=== PATIENT | female | born 1950 | race Caucasian/White ===

== ENCOUNTER 2022-10-06 11:25 | Outpatient (CLI) | payer OTHER, SELFPAY ==
[2022-10-06 21:25] LABS: Albumin* 4.5 g/dL (3.3-5.0); Chloride* 105 mmol/L (96-114); Potassium* 4.3 mmol/L (3.6-5.1); Sodium* 136 mmol/L (135-149)
[2022-10-06 21:27] LABS: Carbon Dioxide* 29 mmol/L (20-32); Cholesterol* 168 mg/dL (90-199); Creatinine* 0.8 mg/dL (0.5-1.5); Estimated Glomerular Filt Rate 79 ml/min
[2022-10-06 21:28] LABS: Alanine Aminotransferase* 20 U/L (4-35); Alkaline Phosphatase* 107 U/L (40-150); Aspartate Amino Transferase* 29 U/L (12-35); Bilirubin Total* 0.7 mg/dL (0.1-1.5); Blood Urea Nitrogen* 16 mg/dL (7-30); Calcium* 9.8 mg/dL (8.4-10.6); Glucose* 83 mg/dL (60-115); HDL Cholesterol* 56 mg/dL (>=50); LDL Cholesterol Calculated 76 mg/dL (<100); Total Protein* 6.9 g/dL (6.0-8.3); Triglycerides* 181 mg/dL (40-149)
== END 2022-10-06 11:26 | disposition home or self-care (01) ==
PROVIDERS: PCP Physician Assistant Medical; Visit Provider Physician Assistant Medical
DX: E78.5 Hyperlipidemia, unspecified (principal); I10 Essential (primary) hypertension; E55.9 Vitamin D deficiency, unspecified; Z79.899 Other long term (current) drug therapy
CPT/HCPCS: 80053; 80061

== ENCOUNTER 2022-10-27 14:15 | Outpatient (CLI) | payer OTHER, SELFPAY ==
--- NOTE | 2022-10-27 14:30 | CRLHL7_ITS ---
For Patients: As a result of the Century Cures Act, medical imaging exams and procedure reports are released immediately into your electronic medical record. You may view this report before your referring provider. If you have questions, please contact your health care provider. DXA BONE MINERAL DENSITY STUDY Current height (in): 65.0. Weight (lb): 127.0. Menopause age: 48. Ethnicity: White. Reason for exam: Osteoporosis. 1. Have you had a previous hip or vertebral fracture? Yes. 2. Have you had any fractures during your adult life which did not result from significant trauma (e.g., auto accident)? Yes. 3. Did either of your parents have a hip fracture? No. 4. Do you smoke? Yes. 5. Have you ever taken Glucocorticoids? No. 6. Do you have rheumatoid arthritis? No. 7. Do you have secondary osteoporosis? No. 8. Do you drink 3 or more alcoholic drinks per day? No. 9. Are you being treated for osteoporosis? Yes. 10. Have you ever taken any of the following medications: Actonel, Evista, Fosamax, Miacalcin, Reclast, Boniva, Forteo, HRT (i.e. estrogen/hormone therapy), Protelos, Prolia, Vitamin D, Calcium, other ??? please specify. ANSWER: Yes, Fosamax, vitamin D, Boniva, Prolia, calcium. 11. Do you have any of the following medical conditions: Anorexia or bulimia, asthma or emphysema, end stage renal disease, hyperparathyroidism, any seizure disorders, cancer, inflammatory bowel diseases, hysterectomy, other ??? please specify. ANSWER: No. 12. What was your maximum height (inches)? 67. 13. Do you perform weight bearing exercise regularly? No. 14. Do you regularly consume dairy products? Yes. 15. Do you drink caffeinated beverages? Yes. If female: 16. At what age did your period start? 14. 17. Are you premenopausal? Yes. 18. How many full term pregnancies have you had? 2. 19. Have you ever missed your period for more than 6 months in a row (not including or menopause)? No. TECHNIQUE: Bone mineral density study was performed using the [employer] 3D. FINDINGS: The results of the study expressed as bone mineral density (BMD) are as follows: Neck Left: BMD: 0.452 g/cm2. T-score: -3.6. Z-score: -1.7. Right: BMD: 0.416 g/cm2. T-score: -3.9. Z-score: -2.0. Total Left: BMD: 0.489 g/cm2. T-score: -3.7. Z-score: -2.1. Right: BMD: 0.480 g/cm2. T-score: -3.8. Z-score: -2.2. Radius Left 33%: BMD: 0.509 g/cm2. T-score: -3.1. Z-score: -0.9. IMPRESSION: Osteoporosis. *Comparison exams done prior to 04/2020 were performed on different unit, [facility]. COMPARISON: Compared with scan of 11/19/2020, the bone mineral density has increased by 2.3 percent at the hip. Syd Stern M.D. Diagnostic Radiologist [email or web address] Transcribed: 11:14 a.m. DW/Dictated by: Syd Stern MD @ 10/28/2022 10:38:00 AM (Electronically Signed)
== END 2022-10-27 14:16 | disposition home or self-care (01) ==
LOC: RAD 14:17
PROVIDERS: PCP Physician Assistant Medical; Visit Provider Physician Assistant Medical
DX: M81.0 Age-related osteoporosis without current pathological fracture (principal); Z78.0 Asymptomatic menopausal state
CPT/HCPCS: 77080

== ENCOUNTER 2023-10-19 11:00 | Outpatient (CLI) | payer OTHER, SELFPAY | END 2023-10-19 11:01 | disposition home or self-care (01) | LOC: NFLDREF 10-20 06:32 | PROVIDERS: PCP Physician Assistant Medical; Referring Provider Physician Assistant Medical; Visit Provider Physician Assistant Medical | DX: Z79.01 Long term (current) use of anticoagulants (principal); E78.2 Mixed hyperlipidemia; I10 Essential (primary) hypertension | CPT/HCPCS: 80053; 80061 ==

== ENCOUNTER 2024-01-19 10:53 | Outpatient (CLI) | payer OTHER, SELFPAY | END 2024-01-19 10:54 | disposition home or self-care (01) | LOC: NFLDREF 01-30 13:05 | PROVIDERS: PCP Physician Assistant Medical; Referring Provider Physician Assistant Medical; Visit Provider Physician Assistant Medical | DX: Z79.01 Long term (current) use of anticoagulants (principal) | CPT/HCPCS: 85610 ==

== ENCOUNTER 2024-08-08 11:00 | Outpatient (CLI) | payer OTHER, SELFPAY | END 2024-08-08 11:01 | disposition home or self-care (01) | LOC: NFLDREF 08-09 10:57 | PROVIDERS: PCP Physician Assistant Medical; Referring Provider Physician Assistant Medical; Visit Provider Physician Assistant Medical | DX: Z95.2 Presence of prosthetic heart valve (principal); Z79.01 Long term (current) use of anticoagulants | CPT/HCPCS: 85610 ==

== ENCOUNTER 2024-08-15 10:25 | Outpatient (CLI) | payer OTHER, SELFPAY | END 2024-08-15 10:26 | disposition home or self-care (01) | LOC: NFLDREF 08-19 06:18 | PROVIDERS: PCP Physician Assistant Medical; Referring Provider Physician Assistant Medical; Visit Provider Physician Assistant Medical | DX: Z79.01 Long term (current) use of anticoagulants (principal) | CPT/HCPCS: 85610 ==

== ENCOUNTER 2024-10-15 11:02 | Outpatient (CLI) | payer OTHER, SELFPAY | END 2024-10-15 11:03 | disposition home or self-care (01) | LOC: NFLDREF 10-17 12:12 | PROVIDERS: PCP Physician Assistant Medical; Referring Provider Physician Assistant Medical; Visit Provider Physician Assistant Medical | DX: I10 Essential (primary) hypertension (principal); E78.2 Mixed hyperlipidemia; E55.9 Vitamin D deficiency, unspecified; Z79.01 Long term (current) use of anticoagulants | CPT/HCPCS: 80053; 80061; 82306; 84443 ==

== ENCOUNTER 2025-01-21 11:05 | Outpatient (CLI) | payer MEDICARE, SELFPAY | END 2025-01-21 11:06 | disposition home or self-care (01) | LOC: NFLDREF 01-23 07:21 | PROVIDERS: PCP Physician Assistant Medical; Referring Provider Physician Assistant Medical; Visit Provider Physician Assistant Medical | DX: E55.9 Vitamin D deficiency, unspecified (principal) | CPT/HCPCS: 82652 ==

== ENCOUNTER 2025-03-12 13:02 | Emergency (ER) | payer MEDICARE, SELFPAY ==
--- OUTSIDE RECORDS SUMMARY | 2025-03-12 13:06 | XMS_ITS | Clinical Summary ---
Author Organization [facility] Address [address] [place] [address] Care Team Providers Care Non Cdl Driver Name Role Phone Zoila Mckeonanntania Celaya Primary Care Provider [phone] Allergies Active Allergy Reactions Criticality Noted Date Comments Codeine 05/03/2007 Sulfa (Sulfonamide Antibiotics) 04/21 Medications ASPIRIN 81 MG TAB, DELAYED RELEASE take 1 tablet (81 mg) by oral route once daily Active ZOCOR 80 MG TAB take 1 tablet (80 mg) by oral route once daily in the evening Active AMOXICILLIN 500 MG CAP as needed prior to dental procedures Active BONIVA 150 MG TAB take 1 tablet (150 mg) by oral route once a month on the same date; Take with a full glass of water and remain in an upright position for at least 60 minutes. Active AMBIEN 10 MG TAB take 1 tablet (10 mg) by oral route once daily at bedtime as needed 05/03/20 07 Active HYDROCODONE-AC ETAMINOPHEN 7.5 MG-325 MG TAB take 1-2 tablet by oral route every 4 hours as needed for incisional pain 35 0 05/23/20 07 Active COUMADIN 5 MG TAB take as directed. 45 per primary care physician 05/23/20 07 Active METOPROLOL 25 MG TAB 25 mg Oral TWICE A DAY 60 per primary care physician 05/23/20 07 Active ergocalciferol (VITAMIN D) 50,000 unit capsule Take 1 capsule by mouth once weekly. 0 10/23/20 15 Active tiZANidine (ZANAFLEX) 4 mg tablet Take 4 mg by mouth one time if needed. 11/18/20 15 Active aspirin chewable 81 mg chewable tablet Take 1 tablet by mouth once daily with a meal. 0 10/22/20 15 Active denosumab (PROLIA) 60 mg/mL injection Inject 1 mL subcutaneous one time. 1 injection twice a year 1 mL 0 10/22/20 15 Active calcium carbonate (NATURAL CALCIUM) 500 mg calcium (1,250 mg) tablet Take 1 tablet by mouth 3 times daily with meals. 0 10/22/20 15 Active Active Problems Problem Noted Date Diagnosed Date Adjustment disorder with mixed anxiety and depre ssed mood 07/04/2012 Presbyopia 07/09/2010 Myopia 07/09/2010 AORTIC STENOSIS 05/19/2007 Overview (05/19/2007): 05/18/07: Aortic Valve Replacement with a 23mm [employer] valve. Goal INR for mechanical AVR 2.0-2.5. Social History Tobacco Use Types Packs/Day Years Used Date Smoking Tobacco: Every Day Cigarettes 0.5 20 Tobacco Cessation:Ready to Q uit: Yes; Counseling Given: Yes Alcohol Use Standard Drinks/Week Comments Not Asked 0 (1 standard drink = 0.6 oz pur e alcohol) Comments No Sex and Gender Information Value Date Recorded Sex Assigned at Not on file Legal Sex Female 5:25 AM RE RECORDING MIXER Gender Identity Not on file Sexual Orientation Not on file Obstetrics History Last Filed Vital Signs Vital Sign Reading Time Taken Comments Blood Pressure 104/67 10/22/2015 3:06 PM RE RECORDING MIXER tow er Pulse 76 10/22/2015 3:06 PM RE RECORDING MIXER Temperature 36.7 C (98.1 F) 10/22/2015 3:06 PM RE RECORDING MIXER Respiratory Rate 18 07/22/2012 6:29 PM CDT Oxygen Saturation 96% 10/22/2015 3:06 PM RE RECORDING MIXER Inhaled Oxygen Concentration - - Weight 65.7 kg (144 lb 12.8 oz) 10/22/2015 3:06 PM RE RECORDING MIXER Height 167.6 cm (5' 6) 07/22/2012 3:15 PM CDT Body Mass Index 23.37 07/22/2012 3:15 PM CDT Plan of Treatment Health Maintenance Due Date Last Done Comments Tdap 1962 Depression screening for age 12+ 1963 BMI (ht and wt on same day) for age 18+ 1969 Hepatitis C screening for age 18-79 1969 Tetanus booster 1971 Colonoscopy through age 75 1996 Lipids for age 45-75 1996 Mammogram for age 45-75 1996 Pneumococcal series for age 50+ (1 of 1 - PCV) 001 Zoster (shingles) series for age 50+ (1 of 2) 03/07/20 DEXA/DXA scan for age 65+ 2016 Medicare Wellness for age 65+ 2016 COVID-19 vaccine series ( - 2023- season) Influenza Vaccine (Season Ended) 2025 RSV vaccine for adults or pr egnancy (1 - 1-dose 75+ series) 2026 Medical Devices Implanted Type Area Laminator Device Identifier Shelf Expiration Date Model / Serial / Lot Anw Hh [id number] Implanted:Qty: 1 on 05/18/2007 at [facility] Explanted:at [facility] (Quantity not on file) N/A: Aortic Valve [employer] 01/31/2012 [id number] # / [id number] / Pledget Ptfe 6x4.5mm Rectangular [id number] - [id number] Implanted:Qty: 2 on 05/18/2007 at [facility] [id number] / / Insurance MICHELLE BETH [id number] [employer] CHOICE PPO MR Advance Directives * Full Code (Latest Code Status on File) Date Activated Date Inactivated Comments 05/18/2007 10:16 AM 05/23/2007 4:13 PM * Full Code Date Activated Date Inactivated Comments 05/18/2007 5:29 AM 05/18/2007 10:16 AM Care Teams Non Cdl Driver Relationship Specialty Start Date End Date Renee Mckeon [address] [place] [address] PCP - General 04/14/07
[2025-03-12 13:23] VITALS: BP 143/83; PULSE 61; RESP 18; TEMP 37.4; O2SAT 96; BMI 25.7
--- NOTE | 2025-03-12 14:28 | CRLHL7_ITS ---
For Patients: As a result of the Century Cures Act, medical imaging exams and procedure reports are released immediately into your electronic medical record. You may view this report before your referring provider. If you have questions, please contact your health care provider. INDICATION: Low back pain. TECHNIQUE: CT lumbar spine without contrast. COMPARISON: X-ray lumbar spine December 01 and April 26, 2024 FINDINGS: Diffuse osteopenia. Postoperative changes of posterior spinal fusion from T10 through L3. Minimal right-sided curvature of the lumbar spine is unchanged. Pedicular screws and connecting rods are intact. Redemonstration of superior endplate compression fracture of L1 and L2, which was also identified on previous x-rays. No significant change given the difference in modality. There is new superior endplate compression fracture of L5 with height loss of about 20 percent. Multilevel degenerative changes of the spine. No significant spinal canal or neural foraminal stenosis at any level. Bilateral renal cystic lesions are present. Advanced atherosclerosis of the abdominal aorta. Colonic diverticulosis. Perivertebral soft tissues are unremarkable. IMPRESSION: 1. Superior endplate compression fracture of L5, unknown chronicity. It is new in comparison to previous x-ray . 2. Chronic superior endplate compression fracture of L1 and L2. 3. Stable posterior spinal fusion from T10 through L3. Please note that all CT scans at this facility use dose modulation, iterative reconstruction, and/or weight-based dosing when appropriate to reduce radiation dose to as low as reasonably achievable. Dictated by Saleem Solorzano MD @ 03/12/2025 3:36:44 PM (Electronically Signed)
--- OUTSIDE RECORDS SUMMARY | 2025-03-12 14:35 | XMS_ITS | Clinical Summary ---
Author Organization [facility] Address [address] [place] [address] Care Team Providers Care Milker Machine Name Role Phone Zoila Mckeonanntania Celaya Primary Care Provider [phone] Allergies Active Allergy Reactions Criticality Noted Date [...] on file Legal Sex Female 5:25 AM AIR BRAKE RIGGER Gender Identity Not on file Sexual Orientation Not on file Obstetrics History Last Filed Vital Signs Vital Sign Reading Time Taken Comments Blood Pressure 104/67 10/22/2015 3:06 PM AIR BRAKE RIGGER tow er Pulse 76 10/22/2015 3:06 PM AIR BRAKE RIGGER Temperature 36.7 C (98.1 F) 10/22/2015 3:06 PM AIR BRAKE RIGGER Respiratory Rate 18 07/22/2012 6:29 PM CDT Oxygen Saturation 96% 10/22/2015 3:06 PM AIR BRAKE RIGGER Inhaled Oxygen Concentration - - Weight 65.7 kg (144 lb 12.8 oz) 10/22/2015 3:06 PM AIR BRAKE RIGGER Height 167.6 cm (5' 6) 07/22/2012 3:15 [...] series) 2026 Medical Devices Implanted Type Area Oyster Shucker Device Identifier Shelf Expiration Date Model / Serial / Lot Anw Hh [id number] Implanted:Qty: 1 on 05/18/2007 at [facility] Explanted:at [facility] (Quantity not on file) N/A: Aortic Valve [employer] 01/31/2012 [id number] # / [id number] / Pledget Ptfe 6x4.5mm Rectangular [id number] - [id number] Implanted:Qty: 2 on 05/18/2007 at [facility] [id number] / / Insurance MICHELLE BETH [id number] [employer] CHOICE PPO MR Advance Directives * Full Code (Latest Code Status on File) Date Activated Date Inactivated Comments 05/18/2007 10:16 AM 05/23/2007 4:13 PM * Full Code Date Activated Date Inactivated Comments 05/18/2007 5:29 AM 05/18/2007 10:16 AM Care Teams Milker Machine Relationship Specialty Start Date End Date Renee Mckeon [address] [place] [address] PCP - General 04/14/07
[2025-03-12] MEDS: OXYCODONE 5 MG TABLET PO (14:43)
--- NOTE | 2025-03-12 15:12 | ED_ITS ---
HPI - Back Pain/Injury General Date Seen: 03/12/25 Chief Complaint: Back Injury/Pain Stated Complaint: possible cracked vertebrae Time Seen by Provider: 03/12/25 14:14 Source: patient Mode of arrival: ambulatory Limitations: no limitations History of Present Illness HPI Narrative: Patient is a 75-year-old female presenting to emergency department for low back pain. She states the back pain has been gone for past week and a half. She states she has had pain like this before 1 year ago and was told she a compression fracture at that time. She has not remember any recent injuries to her back. Denies any recent falls. Pain does not seem to radiate down her leg some. Denies any saddle anesthesia. States she urinating normally throughout the day but at night she is not sure she is fully emptying her bladder. Has not noticed any fevers or chills. Denies weakness of her legs but states the pain does make it difficult for her to some of her activities of daily living. Has been using Tylenol without improvement in her symptoms. Has previously needed rods in her back for a broken vertebrae. No other injuries noted. Related Data Home Medications ?Medication ?Instructions ?Recorded ?Confirmed denosumab 60 mg/mL subcutaneous 60 mg subcut [id number] 07/28/22 11/12/24 syringe (Prolia) ascorbic acid (vitamin C) 500 mg 500 mg PO DAILY 10/08/22 11/12/24 tablet aspirin 81 mg tablet,delayed 81 mg PO QDAY 10/08/22 11/12/24 release calcium ER 600 mg (as carb,cit)-D3 2 tab PO DAILY 10/08/22 11/12/24 12.5 mcg (500 unit) tablet, ext.rel (Citracal-D3 Slow Release) melatonin 10 mg tablet 10 mg PO .Bedtime as needed PRN 10/08/22 11/12/24 natures bounty zinc 250 mg PO DAILY 10/08/22 11/12/24 Previous Rx's ?Medication ?Instructions ?Recorded cholecalciferol (vitamin D3) 1,250 1,250 mcg PO QWEEK #13 caps 01/23/25 mcg (50,000 unit) capsule metoprolol tartrate 25 mg tablet 12.5 mg (1/2 x 25 mg) PO BID #90 02/13/25 tabs simvastatin 40 mg tablet 60 mg (1.5 x 40 mg) PO .hs #135 02/13/25 tabs tizanidine 4 mg tablet 4 mg PO BID PRN for muscle spasm 02/13/25 #180 tabs warfarin 2.5 mg tablet 2.5 mg PO DIRECTED #30 tabs 02/13/25 warfarin 5 mg tablet 5 mg PO DIRECTED #90 tabs 02/13/25 Allergies Allergy/AdvReac Type Severity Reaction Status Date / Time codeine Allergy Severe heart Verified 11/12/24 14:50 palpatations Sulfa (Sulfonamide Allergy Severe Swelling Verified 11/12/24 14:50 Antibiotics) of Lip/Tongue/Throat Review of Systems Narrative: Pertinent systems reviewed and were negative unless stated in HPI PFSH PFSH Medical History Former smoker ?Z87.891 - Personal history of nicotine dependence (ICD-10) Acute maxillary sinusitis ?J01.00 - Acute maxillary sinusitis, unspecified (ICD-10) History of vertebral fracture ?Z87.81 - Personal history of (healed) traumatic fracture (ICD-10) Surgical History Status post aortic valve replacement ?Z95.2 - Presence of prosthetic heart valve (ICD-10) History of colectomy (05/05/10) ?Z90.49 - Acquired absence of other specified parts of digestive tract (ICD- 10) History of cholecystectomy (05/05/10) ?Z90.49 - Acquired absence of other specified parts of digestive tract (ICD- 10) History of breast biopsy (05/05/10) ?Z98.890 - Other specified postprocedural states (ICD-10) History of appendectomy (05/05/10) ?Z90.49 - Acquired absence of other specified parts of digestive tract (ICD- 10) Family History Other Coronary artery disease Diabetes High blood pressure Social History Narrative: does not use illicit drugs former smoker occasional alcohol consumption What is your current living situation?: I presently have a place to live Problems where you live: no known problems In the past 12 months, utilities in danger of being shut off: no In past 12 months, lack of transportation kept you from medical appts, meetings, work, or getting things needed for daily living: no In the past 12 mos, have been you worried that your food would run out before you had money to buy more?: never true In the past 12 mos, the food you bought just didn't last and you didn't have money to buy more?: never true Smoking Status: Current every day smoker Do you use any of these nicotine containing products: None How often do you have a drink containing alcohol: monthly or less AUDIT-C Alcohol total score: 1 Non-prescribed substance use: denies use How often does anyone, including family, friends and others, physically hurt you : never How often does anyone, including family, friends and others, insult or talk down to you: never How often does anyone, including family, friends and others, threaten you with harm: never How often does anyone, including family, friends and others, scream or curse at you: never service: No Exam Const: Vital Signs, click to edit/add: Vital Signs - 24 hr 03/12/25 13:23 03/12/25 15:20 Temperature 99.4 F Pulse Rate [Pulse Oximeter] 61 72 Respiratory Rate 18 16 Blood Pressure [Ri ght Upper Arm] 143/83 H 196/86 H Pulse Oximetry 96 95 Oxygen Delivery Me thod Room Air Room Air Course Vital Signs Vital signs: Initial Vital Signs Temperature 99.4 F 03/12/25 13:23 Temperature Source Temporal Artery Scan 03/12/25 13:23 Pulse Rate 61 03/12/25 13:23 Respiratory Rate 18 03/12/25 13:23 Blood Pressure 143/83 H 03/12/25 13:23 Blood Pressure Mean 103 03/12/25 13:23 Blood Pressure Position Sitting 03/12/25 13:23 Pulse Oximetry 96 03/12/25 13:23 Oxygen Delivery Method Room Air 03/12/25 13:23 Vital Signs Temperature 99.4 F 03/12/25 13:23 Pulse Rate 61 03/12/25 13:23 Respiratory Rate 18 03/12/25 13:23 Blood Pressure 143/83 H 03/12/25 13:23 Pulse Oximetry 96 03/12/25 13:23 Oxygen Delivery Method Room Air 03/12/25 13:23 Temperature 99.4 F 03/12/25 13:23 Pulse Rate 72 03/12/25 15:20 Respiratory Rate 16 03/12/25 15:20 Blood Pressure 196/86 H 03/12/25 15:20 Pulse Oximetry 95 03/12/25 15:20 Oxygen Delivery Method Room Air 03/12/25 15:20 Medications Administered Medications: Discontinued Medications Generic Name Dose Route Start Last Admin Trade Name Kiara PRN Reason Stop Dose Admin Oxycodone HCl 5 mg 03/12/25 14:28 03/12/25 14:43 Oxycodone 5 Mg Tablet PO 03/12/25 14:29 5 mg ONCE ONE Administration MDM - Back Pain/Injury MDM Narrative Medical decision making narrative: Patient is a 75-year-old female presenting for back pain. This could be related to a compression fracture as she does have previous compression fractures and osteoporosis. Based on her description does not sound like she has any red flag symptoms. She does feel like she has some urinary retention but just during the night. During the day she states she is urinating completely normal and it is unlikely for cauda equina to just causes urinary retention at night. Has not had any incontinence. Postvoid bladder scan was done and she only at 30 mL. My concern for cauda equina is low at this time. Will do a CT scan of the lumbar spine though for better evaluation. She is also given oxycodone for pain which seemed to help her symptoms quite a bit she states her pain is now much more tolerable. CT scan showed some old compression fractures in concerned about a new compression fracture at L5. I do not believe this compression fracture is actually new though as she is the 1 who told me she has an L5 compression fracture. Also x- ray from 03/22/2024 shows a likely new deformity at the superior MP L of L5 consistent with her current reading. Either way this is not unstable and she is safe for discharge. She is agreeable to this plan. To be discharged with oxycodone via instymeds. Imaging Data CT scan lumbar spine: Attestation: I have reviewed the pertinent imaging results. Radiologist's impression: 1. Superior endplate compression fracture of L5, unknown chronicity. It is new in comparison to previous x-ray . 2. Chronic superior endplate compression fracture of L1 and L2. 3. Stable posterior spinal fusion from T10 through L3. Please note that all CT scans at this facility use dose modulation, iterative reconstruction, and/or weight-based dosing when appropriate to reduce radiation dose to as low as reasonably achievable. Dictated by Saleem Solorzano MD @ 03/12/2025 3:36:44 PM Discharge Plan Discharge Clinical Impression: Compression fracture of fifth lumbar vertebra Qualifiers: Encounter type: initial encounter Qualified Code(s): S32.050A - Wedge compression fracture of fifth lumbar vertebra, initial encounter for closed fracture Back pain Qualifiers: Back pain location: low back pain Chronicity: unspecified Back pain laterality: bilateral Sciatica presence: without sciatica Qualified Code(s): M54.50 - Low back pain, unspecified Patient Disposition: Home, Self-Care Condition: Improved Instructions: Acute Low Back Pain (ED) Additional Instructions: Your back pain may be from were slightly worsening of your known L5 compression fracture or it may be all muscular in nature. Either way take the oxycodone as needed for pain. I recommend close follow-up with the primary care provider. You will not be able to get further narcotics via this emergency department. Prescriptions: No Action calcium carb, citrate-vit D3 [Citracal-D3 Slow Release] 600 mg-12.5 mcg (500 unit) tablet extended release 2 tab PO DAILY aspirin 81 mg tablet,delayed release (DR/EC) 81 mg PO QDAY melatonin 10 mg tablet 10 mg PO .Bedtime as needed PRN ascorbic acid (vitamin C) 500 mg tablet 500 mg PO DAILY natures bounty zinc tablet 250 mg PO DAILY Prolia 60 mg/mL syringe 60 mg subcut [id number] cholecalciferol (vitamin D3) 1,250 mcg (50,000 unit) capsule 1,250 mcg PO QWEEK Qty: 13 0RF metoprolol tartrate 25 mg tablet 12.5 mg PO BID Qty: 90 3RF simvastatin 40 mg tablet 60 mg PO .hs Qty: 135 3RF tizanidine 4 mg tablet 4 mg PO BID PRN (Reason: for muscle spasm) Qty: 180 3RF warfarin 5 mg tablet 5 mg PO DIRECTED Qty: 90 0RF Protocol: Dose Management Condition: Tuesday Dose/Route: 7.5 mg Instruction: 1 x 2.5 mg tablet, 1 x 5 mg tablet Condition: Tuesday Dose/Route: 5 mg Instruction: 1 x 5 mg tablet Condition: Tuesday Dose/Route: 5 mg Instruction: 1 x 5 mg tablet Condition: Tuesday Dose/Route: 5 mg Instruction: 1 x 5 mg tablet Condition: Dose/Route: 5 mg Instruction: 1 x 5 mg tablet Condition: Tuesday Dose/Route: 5 mg Instruction: 1 x 5 mg tablet Condition: Tuesday Dose/Route: 7.5 mg Instruction: 1 x 2.5 mg tablet, 1 x 5 mg tablet Protocol Text: Adjustment Start Date: 02/28/25 INR Value: 3.0 INR Date: 02/28/25 Recheck Date: 03/28/25 Rx Instructions: Take 7.5 mg on Tuesday/Tuesday and 5 mg the rest of the week warfarin 2.5 mg tablet 2.5 mg PO DIRECTED Qty: 30 0RF Protocol: Dose Management Condition: Tuesday Dose/Route: 7.5 mg Instruction: 1 x 2.5 mg tablet, 1 x 5 mg tablet Condition: Tuesday Dose/Route: 5 mg Instruction: 1 x 5 mg tablet Condition: Tuesday Dose/Route: 5 mg Instruction: 1 x 5 mg tablet Condition: Tuesday Dose/Route: 5 mg Instruction: 1 x 5 mg tablet Condition: Dose/Route: 5 mg Instruction: 1 x 5 mg tablet Condition: Tuesday Dose/Route: 5 mg Instruction: 1 x 5 mg tablet Condition: Tuesday Dose/Route: 7.5 mg Instruction: 1 x 2.5 mg tablet, 1 x 5 mg tablet Protocol Text: Adjustment Start Date: 02/28/25 INR Value: 3.0 INR Date: 02/28/25 Recheck Date: 03/28/25 Rx Instructions: Take 7.5 mg on Tuesday/Tuesday and 5 mg the rest of the week Follow Up/Referrals: Janneth Solorzano PA-C [Primary Care Provider] - Stand Alone Forms: [employer] Info Instructions
[2025-03-12 15:20] VITALS: BP 196/86; PULSE 72; RESP 16; O2SAT 95
== END 2025-03-12 16:39 | disposition home or self-care (01) ==
PROVIDERS: Emergency Provider Student in an Organized Health Care Education/Training Program; PCP Physician Assistant Medical
DX: M80.08XA Age-related osteoporosis with current pathological fracture, vertebra(e), initial encounter for fracture (principal); R33.9 Retention of urine, unspecified
CPT/HCPCS: 51798; 72131; 99284; A9270

== ENCOUNTER 2025-03-20 13:46 | Outpatient (CLI) | payer MEDICARE, SELFPAY ==
--- NOTE | 2025-03-20 14:00 | CRLHL7_ITS ---
For Patients: As a result of the Century Cures Act, medical imaging exams and procedure reports are released immediately into your electronic medical record. You may view this report before your referring provider. If you have questions, please contact your health care provider. DXA BONE MINERAL DENSITY STUDY Current height (in): 65. Weight (lb): 150. Menopause age: 48. Ethnicity: White. 1. Have you had a previous hip or vertebral fracture? Yes. 2. Have you had any fractures during your adult life which did not result from significant trauma (e.g., auto accident)? Yes. 3. Did either of your parents have a hip fracture? No. 4. Do you smoke? Yes. 5. Have you ever taken Glucocorticoids? Yes. 6. Do you have rheumatoid arthritis? No. 7. Do you have secondary osteoporosis? No. 8. Do you drink 3 or more alcoholic drinks per day? No. 9. Are you being treated for osteoporosis? Yes. 10. Have you ever taken any of the following medications: Actonel, Evista, Fosamax, Miacalcin, Reclast, Boniva, Forteo, HRT (i.e. estrogen/hormone therapy), Protelos, Prolia, Vitamin D, Calcium, other ??? please specify. ANSWER: Yes, Fosamax, Vitamin D, Boniva, Forteo, Prolia and Calcium 11. Do you have any of the following medical conditions: Anorexia or bulimia, asthma or emphysema, end stage renal disease, hyperparathyroidism, any seizure disorders, cancer, inflammatory bowel diseases, hysterectomy, other ??? please specify. ANSWER: No. 12. What was your maximum height (inches)? 67. 13. Do you perform weight bearing exercise regularly? Yes. 14. Do you regularly consume dairy products? Yes. 15. Do you drink caffeinated beverages? Yes. 16. At what age did your period start? 14. 17. Are you premenopausal? No. 18. How many full term pregnancies have you had? 2. 19. Have you ever missed your period for more than 6 months in a row (not including or menopause)? No. TECHNIQUE: Bone mineral density study was performed using the [facility]. FINDINGS: The results of the study expressed as bone mineral density (BMD) are as follows: Neck Left: BMD: 0.424 g/cm2. T-score: -3.8. Z-score: -1.8. Right: BMD: 0.426 g/cm2. T-score: -3.8. Z-score: -1.8. Total Left: BMD: 0.538 g/cm2. T-score: -3.3. Z-score: -1.6. Right: BMD: 0.521 g/cm2. T-score: -3.5. Z-score: -1.7. Radius Left 33%: BMD: 0.492 g/cm2. T-score: -3.4. Z-score: -0.9. IMPRESSION: Osteoporosis. COMPARISON: Compared with scan of 10/27/2022, the bone mineral density has increased by 9.3 percent at the spine and decreased by 3.2 at the left forearm. Compared with scan of 11/19/2020, the bone mineral density has increased by 2.3 percent at the spine and increased by 4.0 percent at the left forearm. Charity Carney M.D. Diagnostic/Breast Radiologist [email or web address] ALANNAH/[email or web address] / DW/Dictated by: Charity Carney MD @ 03/22/2025 11:38:00 AM (Electronically Signed)
== END 2025-03-20 13:47 | disposition home or self-care (01) ==
LOC: RAD 13:47
PROVIDERS: PCP Physician Assistant Medical; Visit Provider Physician Assistant Medical
DX: M81.0 Age-related osteoporosis without current pathological fracture (principal)
CPT/HCPCS: 77080

== ENCOUNTER 2025-04-12 07:36 | Outpatient (CLI) | payer MEDICARE, SELFPAY | END 2025-04-12 07:37 | disposition home or self-care (01) | LOC: INJ CL 07:37 | PROVIDERS: PCP Physician Assistant Medical; Visit Provider Family Medicine | DX: M54.16 Radiculopathy, lumbar region (principal); M51.369 Other intervertebral disc degeneration, lumbar region without mention of lumbar back pain or lower extremity pain | CPT/HCPCS: 64483; J1100; Q9966 ==